=== PATIENT | male | born 1935 | race Hispanic/Latino ===

== ENCOUNTER → 2022-06-01 | Outpatient (CLI) | payer OTHER | END | disposition home or self-care (01) | LOC: RAH 13:12 | PROVIDERS: ATTEND Internal Medicine Cardiovascular Disease | DX: Z13.6 Encounter for screening for cardiovascular disorders (principal) | CPT/HCPCS: 75571 ==

== ENCOUNTER → 2023-03-02 | Outpatient (CLI) | payer OTHER ==
[~2023-03-02] MED LIST: IOHEXOL 350 MG/ML 100ML INFUS..BTL IV ONE; METOPROLOL TARTRATE 1 MG/ML 5ML VIAL IV ONE
== END | disposition home or self-care (01) ==
LOC: RAH 09:05
PROVIDERS: ATTEND Internal Medicine Cardiovascular Disease
DX: I25.10 Atherosclerotic heart disease of native coronary artery without angina pectoris (principal); I10 Essential (primary) hypertension; E78.5 Hyperlipidemia, unspecified
CPT/HCPCS: 75574; J3490 ×2; Q9967

== ENCOUNTER 2023-04-17 06:20 | Day surgery (SDC) | payer OTHER ==
[2023-04-14 09:18] LABS: BASOPHILS # (AUTO) 0.02 K/uL (0.00-0.20); BASOPHILS % (AUTO) 0.4 % (0.0-5.0); EOSINOPHILS # (AUTO) 0.07 K/uL (0.00-0.70); EOSINOPHILS % (AUTO) 1.6 % (0.0-8.0); HEMATOCRIT 32.9 % (42-54); IMMATURE GRANULOCYTE ABSOLUTE 0.02 K/uL (0-1); LYMPHOCYTES # (AUTO) 1.1 K/uL (1.0-4.8); LYMPHOCYTES % (AUTO) 24.1 % (21.0-51.0); MEAN CORPUSCULAR HEMOGLOBIN 34.8 pg (27.0-33.0); MEAN CORPUSCULAR HGB CONC 36.2 g/dL (32.0-36.0); MEAN CORPUSCULAR VOLUME 96.2 fL (79-99); MONOCYTES # (AUTO) 0.4 K/uL (0.1-1.0); MONOCYTES % (AUTO) 8.3 % (3.0-13.0); NEUTROPHILS # (AUTO) 2.9 K/uL (1.8-7.7); NEUTROPHILS % (AUTO) 65.2 % (40.0-77.0); PLATELET COUNT (AUTO) 196 K/uL (130-400); RED BLOOD CELL COUNT(AUTO) 3.42 MIL/uL (4.50-6.20); RED CELL DISTRIBUTION WIDTH 13.7 % (11.0-15.5); WHITE BLOOD COUNT (AUTO) 4.5 K/uL (4.8-10.8)
[2023-04-14 09:24] LABS: APPEARANCE,URINE CLEAR (CLEAR); BILIRUBIN,URINE NEGATIVE (NEGATIVE); COLOR,URINE LIGHT-YELLOW (YELLOW); GLUCOSE, URINE (UA) NEGATIVE (NEGATIVE); KETONES,URINE NEGATIVE (NEGATIVE); LEUKOCYTE ESTERASE ,URINE NEGATIVE Leu/uL (NEGATIVE); NITRATE,URINE NEGATIVE (NEGATIVE); OCCULT BLOOD,URINE NEGATIVE (NEGATIVE); PH,URINE 6.5 (5.0-8.0); PROTEIN,URINE NEGATIVE (NEGATIVE); UROBILINOGEN,URINE 0.2 mg/dL (0.2-1.0)
[2023-04-14 09:27] LABS: ADD UA MICROSCOPIC NO
[2023-04-14 09:32] LABS: CREATININE 0.9 mg/dL (0.5-1.5); POTASSIUM 4.2 mmol/L (3.5-5.1)
[2023-04-14 09:33] LABS: INR 0.94 (0.85-1.15); PROTHROMBIN TIME 10.9 SEC (9.6-11.6)
[2023-04-14 09:34] LABS: PARTIAL THROMBOPLASTIN TIME 28.4 SEC (26.3-35.5)
[2023-04-14 09:36] VITALS: BP 159/68; PULSE 96; RESP 17
[2023-04-14 09:42] LABS: B-TYPE NATRIURETIC PEPTIDE 99 pg/mL (0-100)
[2023-04-17] VITALS (12 sets, daily range): BP systolic 110–155; BP diastolic 40–70; PULSE 54–99; RESP 9–17
[~2023-04-17] VITALS: Ht 177.8 cm; Wt 61.7 kg
[~2023-04-17 06:20] MED LIST changes: +AEC81 PO; +AMLO-258 PO; +ATOR40TA71 PO; +CHOL100046 PO; +FERROUS PO; -IOHEXOL 350 MG/ML 100ML INFUS..BTL IV ONE; +LOSA50TA64 PO; +METF-444 PO; -METOPROLOL TARTRATE 1 MG/ML 5ML VIAL IV ONE; +SERT-438 PO; +VITAMIN B12 PO; +VITAMIN B6 PO
[2023-04-17] MEDS ORDERED: 0.9%NACL 1000ML 1,000 ML IV ONE (06:34)
[2023-04-17 06:54] LABS: POTASSIUM 4.2 mmol/L (3.5-5.1)
[2023-04-17] MEDS ORDERED: IOHEXOL 350 MG/ML 100ML INFUS..BTL IV ONE (09:21)
[2023-04-17] MEDS ORDERED: MEPERIDINE-PF 25 MG/ML SYG ONE (09:21)
[2023-04-17] MEDS ORDERED: MIDAZOLAM HCL 1 MG/ML 2ML VIAL ONE (09:21)
[2023-04-17] MEDS ORDERED: IOHEXOL-350 50ML VIAL IV ONE (09:21)
[2023-04-17] MEDS ORDERED: LIDOCAINE HCL 400MG/20ML VIAL ONE (09:21)
[2023-04-17] MEDS ORDERED: NICARDIPINE 25MG INJ IV ONE (09:22)
[2023-04-17] MEDS ORDERED: HEPARIN 10,000 UNIT/10ML (1,000 UNIT/ML) VIAL ONE (09:22)
[2023-04-17] MEDS ORDERED: ASPIRIN 81MG CHEW TAB ONE (10:18)
[2023-04-17] MEDS ORDERED: CLOPIDOGREL 300MG TAB ONE (10:18)
[2023-04-17] MEDS ORDERED: DEXTROSE 50%-WATER 50 ML DISP.SYRIN IV PRN (10:30)
[2023-04-17] MEDS ORDERED: 0.9%NACL 1000ML 1,000 ML IV SCH (10:30)
[2023-04-17] MEDS ORDERED: INSULIN HUMULIN R 100 UNIT/ML 3ML SQ SCH (11:30)
[2023-04-17 12:33] LABS: CREATININE 0.4 mg/dL (0.5-1.5)
[2023-04-17 12:40] LABS: POTASSIUM 2.5 mmol/L (3.5-5.1)
[2023-04-17] MEDS ORDERED: POTASSIUM CHLORIDE 20MEQ/100ML 100 ML IV ONE (12:53)
[2023-04-17] MEDS ORDERED: KCL 20 MEQ ERTAB PO ONE (13:00)
[2023-04-17] MEDS ORDERED: POTASSIUM CHLORIDE 20MEQ/100ML 100 ML IV SCH (13:00)
== END 2023-04-17 17:00 | disposition home or self-care (01) ==
LOC: DAH 06:20
PROVIDERS: ATTEND Internal Medicine Cardiovascular Disease
DX: I25.10 Atherosclerotic heart disease of native coronary artery without angina pectoris (principal); I10 Essential (primary) hypertension; E11.9 Type 2 diabetes mellitus without complications; K21.9 Gastro-esophageal reflux disease without esophagitis; E03.9 Hypothyroidism, unspecified; G47.00 Insomnia, unspecified; E78.00 Pure hypercholesterolemia, unspecified; Z79.899 Other long term (current) drug therapy; Z79.01 Long term (current) use of anticoagulants; Z79.82 Long term (current) use of aspirin; Z79.84 Long term (current) use of oral hypoglycemic drugs; Z98.890 Other specified postprocedural states; Z82.49 Family history of ischemic heart disease and other diseases of the circulatory system
CPT/HCPCS: 80048 ×3; 83880; 85025; 85610; 85730; 81003; 36415 ×2; 71045; 93005; 85347; 82948 ×2; 93458; 84132; C9600; C1769 ×2; C1874; A4649; C1894; C1887; C1725; J3490 ×2; J7030; J1644 ×2; J2250; J3480; J2175; Q9967; A4215; A4222; A6260; A4221; A4663; A4216; A6206; A4606; Q9965; A4223 ×3; 96360; 96361; 99156; 99157

== ENCOUNTER → 2024-09-17 | Outpatient (CLI) | payer OTHER ==
[~2024-09-17] MED LIST changes: +GADOTERATE MEGLUMINE 10 MMOL/20 ML VIAL IV ONE
--- NOTE | 2024-09-17 17:44 | HMCIMG ---
MR ABDOMEN W/WO CON HISTORY: Pancreas cysts COMPARISON: None TECHNIQUE: MRI of the abdomen was performed utilizing multiple pulse sequences in axial, coronal and sagittal planes. Patient was given 13 cc of Clariscan through intravenous route. FINDINGS: No pleural effusion is seen bilaterally. Liver measures 14 cm. There is pancreatic tail cyst measuring 10.1 mm. There may be prominent pancreatic duct. There is no evidence of adenopathy or ascites. Adrenal glands and spleen are unremarkable. Both kidneys are similar hydronephrosis. IMPRESSION: 1. Pancreatic tail cyst measuring 10 x 1 mm. There is prominent pancreatic duct and clinical correlation is recommended. There is no evidence of adenopathy or ascites.
== END | disposition home or self-care (01) ==
LOC: RAH 07:25
PROVIDERS: ATTEND Internal Medicine Gastroenterology
DX: K86.2 Cyst of pancreas (principal); N13.30 Unspecified hydronephrosis
CPT/HCPCS: 74183; A9575

== ENCOUNTER → 2025-01-09 | Outpatient (CLI) | payer OTHER ==
--- NOTE | 2025-01-09 18:02 | HMCIMG ---
HISTORY: Pancreas cyst TECHNIQUE: MRI of the abdomen without and with intravenous contrast. Multiplanar multiecho MR sequences of the abdomen obtained without and with intravenous contrast. Contrast dose: 13 ml Clariscan COMPARISON: MR abdomen 09/17/2024 FINDINGS: LIVER: Unremarkable. SPLEEN: Unremarkable. KIDNEYS: Unremarkable. No hydronephrosis. ADRENAL GLANDS: Unremarkable. PANCREAS: Circumscribed 1.7 cm cystic lesion in the pancreatic tail, closely approximates the pancreatic duct. No pancreatic duct dilation. No solid enhancing nodule. GALLBLADDER: Unremarkable. No biliary dilatation. BOWEL: The bowel is unremarkable. No acute abnormality. ADENOPATHY: No lymphadenopathy. VASCULATURE: The vasculature is patent. ASCITES: None. OSSEOUS STRUCTURES: Within normal limits. SOFT TISSUES: Unremarkable. IMPRESSION: Circumscribed 1.7 cm cystic lesion in the pancreatic tail, closely approximates the pancreatic duct. No pancreatic duct dilation. No solid enhancing nodule. 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 Finding unchanged from prior. Further follow-up recommendations can be found at the [employer] clinical practice management article: Management of Incidental Pancreatic Cysts: A White Paper of the ACR Incidental Findings Committee. /[place]
== END | disposition home or self-care (01) ==
LOC: RAH 07:32
PROVIDERS: ATTEND Internal Medicine Gastroenterology
DX: K86.2 Cyst of pancreas (principal)
CPT/HCPCS: 74183; A9575